=== PATIENT | male | born 1985 | race Caucasian/White ===

== ENCOUNTER 2020-03-06 12:22 | Observation (INO) | payer SELFPAY ==
[~2020-03-06] VITALS: Ht 182.9 cm; Wt 106.8 kg
--- NOTE | ~2020-03-06 | HEMODYNAMI ---
PATIENT:ESTEBAN PATE MEDICAL RECORD: [id number] : 83 [id number] ADMISSION DATE: 03/06/20 Generatedon:03/07/202013:47 Patient name: ESTEBAN PATE Patient #: [id number] SSN: [id number] : 1985 Date of study: 03/07/2020 Page: Of Hemodynamic Procedure Report Patient Data Patient Demographics Procedure consent was obtained First Name: ESTEBAN Gender: Male Last Name: RIO : 1985 Patient #: [id number] Age: 35 year(s) Race: SSN: [id number] Additional ID: [id number] Contact details [address]: [address] [place] [address] State: [place] City: [place] Zip code: [address] Past Medical History Allergies Allergen Reaction Date Comments Reported Other allergy 03/07/2020 N Admission Admission Data Admission Date: 03/06/2020 Admission Time: 16:55 Arrival Date: 03/07/2020 Arrival Time: 0:00 Admit Source: Other Insurance Payor: None Room #: D.2125 Height (in.): 72 BSA: 2.28 (m2) Height (cm.): 182.88 BMI: 31.87 (kg/m2) Weight (lbs.): 235 Weight (kg.): 106.59 Lab Results Lab Result Date: 03/07/2020 Lab Result Time: 0:00 Biochemistry Name Units Result Min Max BUN mg/dl 13 --(--*-)-- 7 18 CK-MB ng/ml 0.5 --(*---)-- 0 3.6 Creatinine mg/dl 1.1 --(--*-)-- 0.6 1.3 eGFR ml/min 79.55464 *-(----)-- 90 120 NONAFRICAN Troponin l ng/ml 0.017 --(-*--)-- 0 0.06 CBC Name Units Result Min Max Hematocrit % 43.6 --(*---)-- 42 54 Hemoglobin g/dl 14.7 --(-*--)-- 13.5 17.5 Procedure Procedure Types Cath Procedure Diagnostic Procedure [facility] w/Coron[facility] Procedure Description Procedure Date Procedure Date: 03/07/2020 Procedure Start Time: 13:37 Procedure End Time: 13:45 Procedure Staff Name Function Sukhwinder Hatch MD Performing Physician Tanya Greer RT Monitor Farida Escobedo RT Scrub Tyler Self RN Nurse Procedure Data Cath Procedure Fluoroscopy Diagnostic fluoroscopy Total fluoroscopy Time: 1.6 time: 1.6 min min Diagnostic fluoroscopy Total fluoroscopy dose: 188 dose: 188 mGy mGy Contrast Material Contrast Material Type Amount (ml) Isovue 370 18 Entry Location Entry Primary Successful Side Size Upsize Upsize Entry Closure Moreira ccessful Closure Location (Fr) 1 (Fr) 2 (Fr) Remarks Device Remarks Radial Right 6 Fr Mechanical artery Short Compression Estimated blood loss: 5 ml Diagnostic catheters Device Type Used For End Catheter Placement DIAGNOSTIC [place] 110cm 5 Procedure Fr catheter ([id number]) Procedure Complications No complications Procedure Medications Medication Administration Route Dosage Oxygen etCO2 Nasal cannula 2 l/min Lidocaine 2% added to field 20 Heparin Flush Bag added to field 2 bags (1000units/500ml NS) 0.9% NaCl I.V. 100 ml/hr Radial Cocktail I.A. 1 syringe (Verapamil 2mg/Nitro 400mcg/Heparin 1500units) Versed I.V. 1 mg Fentanyl I.V. 50 mcg Versed I.V. 1 mg Fentanyl I.V. 50 mcg Hemodynamics Rest BSA: 2.28 (m2) HGB: 14.7 (g/dl) O2 Consumption: Estimated: 279.04 (ml/min) O2 Co nsumption indexed: Estimated:122.39 (ml/min/m) Heart Rate: 67 (bpm) Pressure Samples Time Site Value (mmHg) Purpose Heart Use Rate(bpm) 13:41 LV 249/41,150 Snapshot 98 Gradients Valve Time Site Site Mean SEP/DFP Peak To Heart Use 1 2 (mmHg) (sec/min) Peak Rate (mmHg) (bpm) Aortic 13:42 LV AO 77 Snapshots Pre Cath Intra NCS Post Cath Vital Signs Time Heart Resp SPO2 etCO2 NIBP (mmHg) Rhythm Pain Sedation Rate (ipm) (%) (mmHg) Status Level (bpm) 13:24:58 65 18 98 0 125/86(105) NSR 0 (11) 10(A) , No pain 13:29:10 71 13 93 39.7 133/79(105) NSR 0 (11) 10(A) , No pain 13:33:28 64 12 93 42.7 139/76(106) NSR 0 (11) 10(A) , No pain 13:37:45 69 13 95 41.2 130/75(100) NSR 0 (11) 9(A) , No pain 13:43:12 77 15 94 41.2 117/80(99) NSR 0 (11) 10(A) , No pain Medications Time Medication Route Dose Verified Delivered Reason Notes Effectiveness by by 13:28:56 Oxygen etCO2 2 l/min Norred Iramie used for Nasal Holden Self RN procedure cannula 13:29:09 Lidocaine 2% added 20ml Norred Cruzred for local to vial Holden Hatch MD anesthetic field 13:29:16 Heparin Flush added 2 bags Norred Norred used for Bag to Holden Hatch MD procedure (1000units/500ml field NS) 13:29:24 0.9% NaCl I.V. 100 Sukhwinder Scott Per ml/hr Holden Self RN physician 13:35:37 Versed I.V. 1 mg Norred Buffie for sedation Holden Self RN 13:35:42 Fentanyl I.V. 50 mcg Sukhwinder Scott for sedation Holden Self RN 13:38:05 Radial Cocktail I.A. 1 Norred Cruzred for (Verapamil syringe Holden Hatch MD vasodilation 2mg/Nitro 400mcg/Heparin 1500units) 13:45:31 Versed I.V. 1 mg Norred Iramie for sedation Holden Self RN 13:45:36 Fentanyl I.V. 50 mcg Sukhwinder Waldenie for sedation Holden Self RN Procedure Log Time Note 13:11:00 Tyler Self RN sent for patient. Start room use. 13:13:24 Informed consent obtained and on chart 13:13:49 Procedure Status Urgent Heart Cath (IP). 13:14:05 Time tracking: Regular hours (M-F 7:00 - 5:00) 13:14:12 Plan of Care:Hemodynamics will remain stable., Cardiac rhythm will remain stable., Comfort level will be maintained., Respiratory function will remain adequate., Patient/ family verbilizes understanding of procedure., Procedure tolerated without complication., Recovers from procedure without complications.. 13:14:22 H&P Date Dictated: 03/06/2020 Within 30 days and on chart.. 13:14:23 Pre-procedure instructions explained to patient. 13:14:23 Pre-op teaching completed and patient verbalized understanding. 13:14:25 Family in patients room. 13:14:27 Patient NPO since Midnight. 13:14:37 Patient allergic to Other allergyPCN 13:14:44 Alarms reviewed by R. N. 13:14:45 Sharps counted by scrub and verified by R.N. 13:15:30 Lab Result : Creatinine 1.1 mg/dl 13:15:30 Lab Result : BUN 13 mg/dl 13:15:30 Lab Result : Troponin l 0.017 ng/ml 13:15:30 Lab Result : CK-MB 0.5 ng/ml 13:15:30 Lab Result : eGFR NONAFRICAN 79.53680 ml/min 13:15:30 Lab Result : Hemoglobin 14.7 g/dl 13:15:30 Lab Result : Hematocrit 43.6 % 13:15:43 Lab results completed and on chart. 13:16:03 Arrival Date: 03/07/2020 12:00:00 AM 13:16:04 Admit Source: Other 13:16:18 Insurance Payor : None 13:16:27 Patient Weight : 235 lbs 13:16:33 Patient Height : 72 inches 13:19:08 Patient received from Pre/Post Procedure Room to [facility] 1 Alert and oriented. Tansferred to table in Supine position. 13:19:10 Warm blankets applied, and frida hugger turned on for patient comfort. 13:19:10 Correct patient and procedure confirmed by team. 13:19:10 ECG and BP/O2 sat monitors applied to patient. 13:19:21 Stress Test: no; N/A ? 13:23:54 Vital chart was started 13:28:56 Oxygen 2 l/min etCO2 Nasal cannula was administered by Tyler Self RN; used for procedure; Verbal order read back and verified. 13:29:09 Lidocaine 2% 20ml vial added to field was administered by Sukhwinder Hatch MD; for local anesthetic; Verbal order read back and verified. 13:29:16 Heparin Flush Bag (1000units/500ml NS) 2 bags added to field was administered by Sukhwinder Hatch MD; used for procedure; Verbal order read back and verified. 13:29:24 0.9% NaCl 100 ml/hr I.V. was administered by Tyler Self RN; Per physician; Verbal order read back and verified. 13:33:23 Baseline sample Acquired. 13:33:27 Rhythm: sinus rhythm 13:33:28 Full Disclosure recording started 13:33:33 Is the patient allergic to Iodine/contrast media? No. 13:33:35 Is patient on blood thinner?No 13:33:37 Patient diabetic? No. 13:33:38 If diabetic: On Metformin? N/A 13:33:39 ----Pre-sedation anethsthesia assessment.---- 13:33:42 Previous problem with sedation/anesthesia? No ? 13:33:43 Snore? Yes 13:33:44 Sleep apnea? No 13:33:45 Deviated septum? No 13:33:46 Opens mouth fully? Yes 13:33:47 Sticks out tongue? Yes 13:33:50 Airway obstruction? No ? 13:33:51 Dentures? No ? 13:33:55 Pre procedure: right dorsailis pedis pulse 2+ Normal; easily identifiable; not easily obliterated 13:33:58 Modified Fidencio's test Ulnar < 7 seconds 13:34:01 Patient pain scale 0/10 ?. 13:34:08 IV patent on arrival in left antecubital with 0.9% NaCl at [facility]. 13:34:13 Right Radial & Right Groin area was prepped with chlora-prep and draped in sterile fashion 13:34:15 --------ALL STOP TIME OUT------ 13:34:15 Final Timeout: patient, procedure, and site verified with staff and physician. All members of the team are in agreement. 13:34:18 Right Radial & Right Groin site verified by team. 13:34:23 Fire Safety Assessment: A--An alcohol-based skin anteseptic being used preoperatively., C--Open oxygen or nitrous oxide is being used., D--An ESU, laser, or fiber-optic light is being used. 13:34:26 Physical assessment completed. ASA score P 2 - A patient with mild systemic disease as per Sukhwinder Hatch MD. 13:34:38 2) 60-89 Mildly reduced kidney function, and other findings (as for stage 1) point to kidney disease. 13:34:49 Maximum allowable contrast dose (3.7 X eGFR X 0.75)222 ml. 13:34:53 Sedation plan: IV Moderate Sedation Medication:Versed, Fentanyl 13:34:55 Use device set Radial Dx or PCI 13:34:57 ACIST Syringe (96116) opened to sterile field. 13:34:57 Medline Cath Pack ([id number]) opened to sterile field. 13:34:58 Bag Decanter (2002S) opened to sterile field. 13:34:58 ACIST Hand Control (22570) opened to sterile field. 13:34:59 ACIST Manifold (20567) opened to sterile field. 13:35:00 MBrace Wrist Support ([id number]) opened to sterile field. 13:35:01 EMERALD Guide Wire (251-458) opened to sterile field. 13:35:02 SHEATH 6FR RAIN (4563226) opened to sterile field. 13:35:05 Procedure started. 13:35:37 Versed 1 mg I.V. was administered by Tyler Self RN; for sedation; Verbal order read back and verified. 13:35:42 Fentanyl 50 mcg I.V. was administered by Tyler Self RN; for sedation; Verbal order read back and verified. 13:37:45 Local anesthetic to right radial artery with Lidocaine 2% by Sukhwinder Hatch MD.INITIAL ACCESS ONLY 13:38:05 Radial Cocktail (Verapamil 2mg/Nitro 400mcg/Heparin 1500units) 1 syringe I.A. was administered by Sukhwinder Hatch MD; for vasodilation; Verbal order read back and verified. 13:39:24 A 6 Fr Short sheath was inserted into the Right Radial artery 13:39:30 A DIAGNOSTIC [place] 110cm 5 Fr catheter (643121) was advanced over the wire and used for Procedure. 13:40:22 LV gram done using OLVERA 13:40:25 Injector settings: Ml/sec: 12, Volume: 8, 13:41:22 LV hemodynamics recorded. 13:41:54 EF : 60 % 13:42:22 RCA angiography performed. 13:42:25 Injector settings: Ml/sec: 2, Volume: 4, 13:42:27 LCA angiography performed. 13:42:53 Injector settings: Ml/sec: 2, Volume: 4, 13:42:57 Catheter removed. 13:43:02 ZEPHYR REGULAR TR BAND (921689) opened to sterile field. 13:43:16 Sheath removed intact; hemostasis achieved with Mechanical Compression to the Right Radial artery. 13:43:18 Procedure ended.(Physican Out) 13:43:35 Fluoroscopy time 01.60 minutes. 13:43:39 Fluoroscopy dose: 188 mGy 13:43:39 Flurop Dose total: 188 13:43:47 Dose Area Product 91722 mGy/cm. 13:43:52 Contrast amount:Isovue 370 18ml. 13:43:56 Maximum allowable dose exceeded? No. 13:43:57 Sharps counted by scrub and verified by R.N. 13:43:[address] band inflated with 14cc of air. 13:44:01 Post Procedure Pulses reassessed and unchanged 13:44:04 Post procedure: right dorsailis pedis pulse 2+ Normal; easily identifiable; not easily obliterated. 13:44:07 Post-procedure physical assessment completed. ASA score P 2 - A patient with mild systemic disease as per Sukhwinder Hatch MD. 13:44:10 Post procedure rhythm: unchanged. 13:44:12 Estimated blood loss: 5 ml 13:44:14 Post procedure instruction explained to patient.Patient verbalizes understanding. 13:44:14 Patient needs reinforcement of post procedure teaching. 13:44:58 Procedure and supply charges have been captured, reviewed, submitted and are correct. 13:45:02 Procedure Complication : No complications 13:45:04 Vital chart was stopped 13:45:06 [facility] Findings: mild to moderate CAD (<70%) 13:45:09 Operative report dictated upon procedure completion. 13:45:09 See physician's report for complete and final results. 13:45:12 Report given to [facility] II. 13:45:15 Patient transfered to Med II with Bed. 13:45:18 Procedure ended. 13:45:18 Full Disclosure recording stopped 13:45:20 End room use (Document Last) 13:45:31 Versed 1 mg I.V. was administered by Tyler Self RN; for sedation; Verbal order read back and verified. 13:45:36 Fentanyl 50 mcg I.V. was administered by Tyler Self RN; for sedation; Verbal order read back and verified. Device Usage Item Name Manufacture Quantity Catalog Hospital Part Current Minima l Lot# / Number Charge Number Stock Stock Serial# Code ACIST Acist 1 90501 090595 358218 [id number] 20 Syringe Medical (95694) Systems Inc Medline Medline 1 [id number] 561578 43312 899869 5 Cath Pack ([id number]) Bag Microtek 1 089403 87003 324287 5 Decanter Medical Inc. () ACIST Hand Acist 1 50663 972772 164618 789970 5 Control Medical (57466) Systems Inc ACIST Acist 1 02050 024818 806786 044393 5 Manifold Medical (57456) Systems Inc MBrace Advanced 1 140-0250-00 754295 28732 131888 5 Wrist Vascular Support Dynamics ([id number]) EMERALD Cardinal 1 502-455 914498 113689 925749 5 Guide Wire Health (502-455) SHEATH 6FR Cardinal 1 0845968 380683 0507180 579168 5 [facility] (4365856) DIAGNOSTIC Terumo 1 40-2291 201347 244038 956690 5 [place] 110cm 5 Fr catheter (631798) ZEPHYR Cardinal 1 401210 337119 3209901 167421 5 REGULAR TR Health BAND (881793) Signature Audit [place] Stage Time Signature Unsigned Intra-Procedure 03/07/2020 Tanya Greer 1:46:35 PM RT(R) Intra-Procedure 03/07/2020 Tyler Self RN 1:46:47 PM Intra-Procedure 03/07/2020 Sukhwinder Hatch MD 1:47:05 PM [id number] [place] [address]
[2020-03-06 13:13] LABS: BASOPHILS 0 % (0-2); EOSINOPHILS 1.3 % (0-7); HEMATOCRIT 44.1 % (42.0-54.0); HEMOGLOBIN 15.2 g/dL (13.5-17.5); IMMATURE GRANULOCYTES 0.1 % (0-5); LYMPHOCYTES 28.4 % (15-50); MCH 30.6 pg (26.0-34.0); MCHC 34.5 g/dL (31.0-37.0); MCV 88.9 fL (80.0-100.0); MEAN PLATELET VOLUME 11.7 fL (7.4-10.4); MONOCYTES 7.9 % (2-11); NEUTROPHILS 62.3 % (40-80); PLATELET COUNT 207 10x3/uL (130-400); RBC 4.96 10x6/uL (4.20-6.10); RDW 12.8 % (11.5-14.5); WBC 7.2 10x3/uL (4.8-10.8)
[2020-03-06 13:29] LABS: CALC OSMOLALITY 276 mosm/kg (275-300); CALCIUM 9.3 mg/dL (8.5-10.1); CARBON DIOXIDE 27.7 mmol/L (21.0-32.0); CHLORIDE - SERUM 104 mmol/L (98-107); GLUCOSE 101 mg/dL (74-106); POTASSIUM - SERUM 4.2 mmol/L (3.5-5.1); SODIUM 138 mmol/L (136-145); UREA NITROGEN 14 mg/dL (7-18); eGFR NON AFRICAN AMERICAN 90 mL/min (90-120)
[2020-03-06 13:34] LABS: APTT 28.2 SECONDS (22.8-39.4)
[2020-03-06 13:35] LABS: D-DIMER-QUANTITATIVE < 0.27 ug/mLFEU (0.20-0.54)
[2020-03-06 13:42] LABS: INR 0.92 (0.85-1.17); PROTIME 12.4 SECONDS (11.6-15.0)
[2020-03-06 13:47] LABS: ALBUMIN 3.9 g/dL (3.4-5.0); ALKALINE PHOSPHATASE 69 U/L (30-120); ALT (SGPT) 35 U/L (10-68); BILIRUBIN - TOTAL 0.58 mg/dL (0.2-1.3); CREATINE KINASE 81 UL (21-232); PROTEIN - SERUM 7.6 g/dL (6.4-8.2); TROPONIN-I < 0.017 ng/mL (0.000-0.060)
[2020-03-06 16:42] LABS: AMYLASE - SERUM 48 U/L (25-115); LIPASE 160 U/L (73-393)
--- NOTE | 2020-03-06 17:50 | NUR ---
PT ADMITTED TO ROOM PER ER STAFF, PT HERE FOR CHEST PAIN, PT COMPLAINS OF PRESSSURE TO LEFT SIDE OF CHEST SINCE THURSDAY MORNING, PATIENT DENIES ANY PAIN MEDS AT THIS TIME, VITAL SIGNS STABLE, PT ORIENTED TO ROOM AND SURROUNDINGS, ALL QUESTIONS ANSWERED, WILL CONTINUE TO MONITOR
[2020-03-06 18:03] VITALS: BP 126/75; BMI 31.9
[2020-03-06 22:29] VITALS: BP 135/41
[2020-03-07 01:52] VITALS: BP 119/70
[2020-03-07 06:19] LABS: BASOPHILS 0.1 % (0-2); EOSINOPHILS 1.8 % (0-7); HEMATOCRIT 43.6 % (42.0-54.0); HEMOGLOBIN 14.7 g/dL (13.5-17.5); IMMATURE GRANULOCYTES 0.1 % (0-5); LYMPHOCYTES 32.1 % (15-50); MCH 30.4 pg (26.0-34.0); MCHC 33.7 g/dL (31.0-37.0); MCV 90.1 fL (80.0-100.0); MEAN PLATELET VOLUME 11.7 fL (7.4-10.4); MONOCYTES 9.2 % (2-11); NEUTROPHILS 56.7 % (40-80); PLATELET COUNT 217 10x3/uL (130-400); RBC 4.84 10x6/uL (4.20-6.10); RDW 12.9 % (11.5-14.5); WBC 7.4 10x3/uL (4.8-10.8)
[2020-03-07 06:57] VITALS: BP 115/63
[2020-03-07 07:04] LABS: ALBUMIN 3.5 g/dL (3.4-5.0); ALKALINE PHOSPHATASE 63 U/L (30-120); ALT (SGPT) 31 U/L (10-68); BILIRUBIN - TOTAL 0.58 mg/dL (0.2-1.3); CALC OSMOLALITY 280 mosm/kg (275-300); CALCIUM 8.7 mg/dL (8.5-10.1); CHLORIDE - SERUM 105 mmol/L (98-107); CKMB 0.5 U/L (0.0-3.6); CREATINE KINASE 57 UL (21-232); CREATININE - SERUM 1.1 mg/dL (0.6-1.3); GLUCOSE 99 mg/dL (74-106); POTASSIUM - SERUM 4.1 mmol/L (3.5-5.1); PROTEIN - SERUM 6.8 g/dL (6.4-8.2); SODIUM 141 mmol/L (136-145); TROPONIN-I < 0.017 ng/mL (0.000-0.060); UREA NITROGEN 13 mg/dL (7-18); eGFR NON AFRICAN AMERICAN 80 mL/min (90-120)
[2020-03-07 07:05] LABS: AMYLASE - SERUM 35 U/L (25-115); LIPASE 73 U/L (73-393)
[2020-03-07 08:37] LABS: UDS - AMPHET NEGATIVE QUAL (NEGATIVE); UDS - BARB NEGATIVE QUAL (NEGATIVE); UDS - BENZO NEGATIVE QUAL (NEGATIVE); UDS - COCAINE NEGATIVE QUAL (NEGATIVE); UDS - OPIATE POSITIVE QUAL (NEGATIVE); UDS - PCP NEGATIVE QUAL (NEGATIVE); UDS - THC NEGATIVE QUAL (NEGATIVE)
[2020-03-07 10:14] VITALS: BP 119/73
[2020-03-07 12:04] LABS: BILIRUBIN NEGATIVE (NEGATIVE); GLUCOSE NEGATIVE (NEGATIVE); KETONE NEGATIVE (NEGATIVE); NITRITE NEGATIVE (NEGATIVE); UROBILINOGEN NORMAL (NORMAL)
[2020-03-07 12:54] LABS: CHOL - HDL RATIO 3.8 ratio (2.3-4.9); LDL-HDL RATIO 2.4 ratio (1.5-3.5)
--- NOTE | 2020-03-07 14:47 | NUR ---
PT TAKEN TO OR. RIGHT RADIAL SITE IS C/D/I. ZEPHER BAND INTACT. WILL CTM.
[2020-03-07] MEDS ORDERED: HYDROCODON-ACE1 EAC7 PO (15:50)
[2020-03-07 15:56] VITALS: Ht 182.9 cm; Wt 106.8 kg
[2020-03-07 17:22] VITALS: BP 125/79
--- NOTE | 2020-03-07 17:31 | NUR ---
PT RETURN FROM PACU. PT IS LETHARGIC AND ORIENTED. VSS AND WNL. RR EVEN AND UNLABORED ON RA. NO S/S OF DISTRESS NOTED. AT BEDSIDE. WILL HOLD DC UNTIL PT IS MORE AWAKE AND AWARE.
--- NOTE | 2020-03-07 19:45 | NUR ---
RECEIVED REPORT AT SHIFT CHANGE. PATIENT ALERT AND ORIENTED WITH SPOUSE AT BEDSIDE. INCISIONS SITES CLEAR OF DRAINAGE, REDNESS, OR BLEEDING. TR BAND REMOVED FROM RIGHT WRIST WITHOUT COMPLICATIONS OR HEMORRHAGING. COVERED WITH A 2X2 AND A TEGADERM. NORCO GIVEN TO TREAT PAIN. DISCHARGE PAPERS WERE SIGNED. PATIENT REPORTS NO NEEDS OR CONCERNS AT THIS TIME.
--- NOTE | 2020-03-07 20:22 | NUR ---
TR BAND TO RIGHT WRIST REMOVED, NO SWELLING, BLEEDING OR HEMATOMA NOTED. IV REMOVED FROM RIGHT AC, TIP INTACT. DISCHARGE INSTRUCTIONS GIVEN, PT AND STATE UNDERSTANDING.
--- NOTE | 2020-03-08 14:53 | CN ---
PATIENT NAME:ESTEBAN PATE MEDICAL RECORD: [id number] : 83 LOCATION:. D.2125 ADMIT DATE: 03/06/20 ACCOUNT: [id number] CONSULTING PHYSICIAN: CECE TAPIA MD REFERRING PHYSICIAN: ASAF SEVERINO MD DATE OF CONSULTATION: 03/07/2020 HISTORY OF PRESENT ILLNESS: A 35-year-old gentleman with a questionable history of recent-onset hypertension, actually seen in the ER at [facility]. OR was ruled out. He does have intermittent chest pain and also underwent CT scanning of the chest, which showed chronic numerous pulmonary nodules. He has a history of smoking, strong family history of coronary artery disease. EKG is abnormal, poor R-wave progression, nonspecific ST-T changes inferiorly. We are asked to see him concerning his cardiovascular status. PAST MEDICAL HISTORY: History of questionable hypertension. MEDICATIONS: None chronically. ALLERGIES: PENICILLIN. SOCIAL HISTORY: Smokes about a pack a day. Social drinker. No illicit drug use. No set exercise program. REVIEW OF SYSTEMS: The patient reports easy bruising but reports no swollen glands. The patient reports no fever, no night sweats, no significant weight gain, no significant weight loss. No significant exercise tolerance. The patient reports no dry eyes, no irritation, no vision change. Patient reports no difficulty hearing and no ear pain. Patient reports no frequent nose bleeds or nose and sinus problems. Patient reports no arm pain on exertion. No shortness of breath while lying down. No history of heart murmur. Patient reports no cough, no wheezing or coughing up blood. Patient reports no abdominal pain, no vomiting. Normal appetite. No diarrhea and not vomiting blood. No nausea and no constipation. Patient reports no incontinence. No difficulty urinating. No hematuria. No increased frequency. Patient reports no muscle aches. No weakness, no arthralgias, no back pain. No swelling of the extremities. Patient reports no abnormal mole, no jaundice, no rashes. Reports no loss of consciousness. No weakness and no numbness. No seizures, dizziness, or headaches. The patient reports no depression, no sleep disturbance, feeling safe in a relationship and no alcohol abuse. Patient reports no fatigue. Reports no runny nose or sinus pressure. No itching, no hives, and no frequent sneezing. PHYSICAL EXAMINATION: GENERAL: Pleasant gentleman in no acute distress. VITAL SIGNS: 119/73, pulse 77 and regular. HEENT: Normocephalic, atraumatic. NECK: No bruits noted. HEART: Regular. II/ systolic ejection murmur. LUNGS: Good air excursion. ABDOMEN: Soft, nontender. EXTREMITIES: Pulses 2+. No edema. IMPRESSION AND PLAN: Multiple risk factors for coronary disease. Second admission with chest pain, we will plan for angiography for definitive CONSULT REPORT [id number] ESTEBAN PATE diagnosis. Further recommendations based on the above. NTS:[id number] Voice Confirmation ID: [id number] DOCUMENT ID: [id number] CECE TAPIA MD at 1453 CC: [id number] DICTATION DATE: 03/07/20 1234 VALIDATION ANALYST: 03/07/202022 DIS IN 03/07/20 [facility] [address] [place] [address]
== END 2020-03-07 20:46 | disposition home or self-care (01) ==
LOC: D.ER 12:22 → D.M2 16:55 → OBSVTIME 03-07 20:45 → D.M2 03-07 20:46
PROVIDERS: Family Medicine; Internal Medicine Interventional Cardiology; ADMIT Family Medicine; ATTEND Family Medicine
DX: I20.0 Unstable angina (principal); R91.1 Solitary pulmonary nodule; K81.0 Acute cholecystitis; R06.02 Shortness of breath; F17.200 Nicotine dependence, unspecified, uncomplicated